=== PATIENT | female | born 1940 | race Two or more races ===

== ENCOUNTER → 2022-05-21 | Outpatient (CLI) | payer MEDICARE | END | disposition home or self-care (01) | LOC: RAD 09:08 | PROVIDERS: ATTEND Internal Medicine | DX: K76.89 Other specified diseases of liver (principal); I25.10 Atherosclerotic heart disease of native coronary artery without angina pectoris; M43.16 Spondylolisthesis, lumbar region; M51.36 Other intervertebral disc degeneration, lumbar region ==